=== PATIENT | male | born 1935 | race Caucasian/White ===

== ENCOUNTER 2017-08-15 09:57 | Emergency (ER) | payer MEDICARE, BC ==
[~2017-08-15] VITALS: Ht 167.6 cm; Wt 76.0 kg
[~2017-08-15 09:57] MED LIST: AMLO5CAP3 PO; COQ1100C PO; COUM3TAB PO; CYCL5TAB PO; NEXI20CA PO; OXYC-395 PO; ROSU10 PO; TRIA1TAB5 PO
[2017-08-15 10:02] VITALS: BP 166/79; PULSE 76; RESP 16; TEMP 97.9; O2SAT 97
[2017-08-15] MEDS ORDERED: HYDR2.5C TOPICAL (11:35)
[2017-08-15] MEDS ORDERED: CEPH-460 PO (11:35)
--- NOTE | 2017-08-15 11:37 | PD ---
HPI Chief Complaint: Skin Problem Time Seen by Provider: 11:06 Travel History International Travel<30 days: No Contact w/Intl Traveler<30days: No Traveled to known affect area: No History of Present Illness HPI This is an 81-year-old male here for evaluation of right lower extremity swelling, redness, itching 7 days. He reports he was doing yard work approximately one week ago which included weed whacking while wearing shorts. He noticed the following day that his right lower extremity was mildly swollen, pruritic, and mildly painful. He reports he may have been bit by an insect or come into contact with poison ravinder. At a routine visit with his supply chain assistant 6 days ago he mention the leg swelling and his supply chain assistant ordered an ultrasound to rule out DVT. He received results on Saturday08/12/17 indicating that the ultrasound was negative for DVT. He reports the swelling in his leg has reduced since that time. He noticed an area on the anterior aspect of his knee which is erythematous and pruritic. He denies fever or chills. Symptoms severity is mild. He denies chest pain, shortness of breath. He is currently anticoagulated on Coumadin for his A. fib. PFSH Past Medical History Hx Anticoagulant Therapy: Yes (coumadin) Heart Rhythm Problems: Yes Cardiovascular Problems: Yes (htn on meds, pacemaker) High Cholesterol: Yes Hypertension: Yes Kidney Stones: Yes Musculoskeletal: Yes (ANKLE) Tetanus Vaccination: Unknown Influenza Vaccination: Yes Past Surgical History Cardiac Surgery: Yes (PACEMAKER) Genitourinary Surgery: Yes (LITHOTRIPSY) Pacemaker: Yes (MAY 2006) Tonsillectomy: Yes Other Surgery: Yes ( BILAT HERNIA) Social History Alcohol Use: Yes (, wine , mix drinks) Tobacco Use: No (pipe 40 yrs ago) Substance Use: No Allergies-Medications (Allergen,Severity, Reaction): Coded Allergies: No Known Allergies (Verified , 04/22/16) Reported Meds & Prescriptions Reported Meds & Active Scripts Active Flexeril (Cyclobenzaprine HCl) 5 Mg Tab 5 Mg PO TID PRN Reported Coumadin (Warfarin) 3 Mg Tab 3 Mg PO DAILY Nexium (Esomeprazole DR) 20 Mg Capdr 20 Mg PO DAILY Coq10 (Coenzyme Q10 (Ubidecarenone)) 100 Mg Cap 100 Mg PO DAILY Oxycodone (Oxycodone HCl) 10 Mg Tab 10 Mg PO DIRECTED PRN Crestor (Rosuvastatin Calcium) 10 Mg Tab 10 Mg PO DAILY Triamterene-Hydrochlorothiazide 75-50 Mg Tab 1 Tab PO DAILY Amlodipine-Benazepril 5-20 Mg Cap 1 Cap PO DAILY Review of Systems Except as stated in HPI: all other systems reviewed are Neg General / Constitutional: No: Fever Eyes: No: Visual changes HENT: No: Headaches Cardiovascular: No: Chest Pain or Discomfort Respiratory: No: Shortness of Breath Gastrointestinal: No: Abdominal Pain Genitourinary: No: Dysuria Musculoskeletal: No: Pain Skin: Positive Rash Physical Exam Narrative GENERAL: Alert and well-appearing 81-year-old male resting comfortable on stretcher. SKIN: Warm and dry. Well demarcated area of erythema to the right anterior aspect of the knee. This is consistent with contact dermatitis vs tinea. There is also several healing scabs to the medial aspects of the leg caused by trauma by fingernails from scratching. There is small amount of erythema surrounding the scabs. HEAD: Normocephalic. EYES: No injection or drainage. NECK: Supple CARDIOVASCULAR: Regular rate and rhythm. No murmur appreciated RESPIRATORY: Breath sounds equal bilaterally. No accessory muscle use. GASTROINTESTINAL: Abdomen soft, non-tender, nondistended. MUSCULOSKELETAL: No cyanosis. Notable mild nonpitting edema to the right lower extremity starting from the knee extending into the ankle. See skin noted above. Palpable popliteal, posterior tibial, dorsal pedis pulses equal bilaterally. Negative Homans sign. Calf is nontender. Patient can freely move the knee, ankle and toes. Her most sensation. Brisk cap refill. BACK: Nontender without obvious deformity. No CVA tenderness. Data Data Last Documented VS Vital Signs Date Time Temp Pulse Resp B/P (MAP) Pulse Ox O2 Delivery O2 Flow Rate FiO2 08/15/17 10:06 16 08/15/17 10:02 97.9 76 166/79 (108) 97 MDM Medical Decision Making Medical Screen Exam Complete: Yes Emergency Medical Condition: Yes Differential Diagnosis Contact dermatitis versus tinea corporis versus mild skin infection versus DVT Narrative Course This is an 81-year-old male here with right lower extremity swelling with a rash 7 days. He underwent ultrasound which was negative for DVT 6 days ago. He reports the swelling has improved since that time. He does have what appears to be dermatitis versus tinea to his right anterior knee. He also has a mild wound infection caused by fingernail trauma to the medial aspect of the leg. No evidence of abscess or cellulitis. The extremity is neurovascularly intact. Repeat ultrasound was offered and patient declined. I don't think repeat ultrasound is warranted at this time given the fact that he had negative us 6 days ago and swelling has improved since that time. He has a follow-up appointment with his primary doctor on Saturday. He is currently anticoagulated on Coumadin. Diagnosis Primary Impression: Dermatitis Referrals: Primary Care Physician Additional Instructions: Medications as directed. Continue to elevate the extremity. Follow-up with her primary doctor this week for recheck. Return to the emergency department if he developed new or worsening symptoms. Scripts Cephalexin (Keflex) 500 Mg Cap 500 MG PO Q6H for Infection for 7 Days, #28 CAP 0 Refills Prov: Whitney Man 08/15/17 Hydrocortisone Topical (Hydrocortisone Topical) 2.5% Cream 1 APPLIC TOPICAL BID for Rash/Inflammation for 7 Days, GM 0 Refills Prov: Whitney Man 08/15/17 Disposition: 01 DISCHARGE HOME Condition: Stable Whitney Man Aug 15, 2017 11:37
== END 2017-08-15 11:48 | disposition home or self-care (01) ==
LOC: PHEFT 09:57
DX: L30.9 Dermatitis, unspecified (principal); I10 Essential (primary) hypertension; E78.00 Pure hypercholesterolemia, unspecified; Z95.0 Presence of cardiac pacemaker; Z79.01 Long term (current) use of anticoagulants
CPT/HCPCS: 99283

== ENCOUNTER 2017-10-08 10:11 | Emergency (ER) | payer MEDICARE, BC ==
[~2017-10-08] VITALS: Ht 162.6 cm; Wt 70.0 kg
[~2017-10-08 10:11] MED LIST changes: +CEPH-460 PO; +HYDR2.5C TOPICAL
[2017-10-08 10:14] VITALS: BP 154/70; PULSE 71; RESP 16; TEMP 98; O2SAT 98
[2017-10-08] MEDS ORDERED: TAMS0.4C4 (11:08)
[2017-10-08] MEDS ORDERED: CARV6.252 PO (11:08)
--- NOTE | 2017-10-08 12:12 | RADRPT ---
EXAM DATE/TIME: 10/08/2017 11:39 [facility] COMPARISON: No previous studies available for comparison. INDICATIONS : Right medial knee pain with no apparent injury. MEDICAL HISTORY : Hypertension. Hypercholesterolemia. SURGICAL HISTORY : Pacemaker. Tonsillectomy. Hernia repair. Total right hip replacement. ENCOUNTER: Initial ACUITY: 3 days PAIN SCORE: 9/10 LOCATION: Right medial knee FINDINGS: Four view examination of the right knee demonstrates no evidence of fracture or dislocation. Bony mi neralization is normal. Soft tissue swelling. Mild osteoarthritis. The suprapatellar soft tissues avelar ve a normal configuration. CONCLUSION: 1. Soft tissue swelling without fracture. 2. Mild osteoarthritis Otoniel Pisano MD on October 08, 2017 at 12:09 Board Certified Radiologist. This report was verified electronically.
--- NOTE | 2017-10-08 12:24 | PD ---
HPI Chief Complaint: Musculoskeletal Complaint Time Seen by Provider: 11:17 Travel History International Travel<30 days: No Contact w/Intl Traveler<30days: No Traveled to known affect area: No History of Present Illness HPI 81-year-old male presents emergency department complaining of right knee pain for approximately 1 week. Patient states that he was previously treated with antibiotics and diuretics weeks ago and his initial knee swelling decreased however, his right knee pain has persisted. Patient denies any injury. Patient states that the pain is worse with walking but is persistent at rest. Says that he has been using OxyContin for an old ankle injury and over-the- counter Tylenol with some relief but is concerned about a more serious process. Patient describes pain as throbbing and aching. The pain is mild to moderate in severity. He denies any numbness or tingling. Denies radiation of pain. Says that he is due to see Dr. Soria, orthopedics October 18 however, he decided to come in today for further evaluation as he is concerned about his pain. Says he has a history of a pacemaker placement and hypertension. Patient is on Coumadin. PFSH Past Medical History Hx Anticoagulant Therapy: Yes (coumadin) Heart Rhythm Problems: Yes Cardiovascular Problems: Yes (htn on meds, pacemaker) High Cholesterol: Yes Diminished Hearing: No Hypertension: Yes Kidney Stones: Yes Musculoskeletal: Yes (ANKLE) Tetanus Vaccination: Unknown Past Surgical History Cardiac Surgery: Yes (PACEMAKER) Genitourinary Surgery: Yes (LITHOTRIPSY) Pacemaker: Yes (MAY 2006) Tonsillectomy: Yes Other Surgery: Yes ( BILAT HERNIA) Social History Alcohol Use: Yes (, wine , mix drinks) Tobacco Use: No (pipe 40 yrs ago) Substance Use: No Allergies-Medications (Allergen,Severity, Reaction): Coded Allergies: No Known Allergies (Verified Adverse Reaction, Unknown, 10/08/17) Reported Meds & Prescriptions Reported Meds & Active Scripts Active Reported Carvedilol 6.25 Mg Tab 6.25 Mg PO BID Tamsulosin (Tamsulosin HCl) 0.4 Mg Cap 0.4 Mg HS Coumadin (Warfarin) 3 Mg Tab 3 Mg PO DAILY Nexium (Esomeprazole DR) 20 Mg Capdr 20 Mg PO DAILY Oxycodone (Oxycodone HCl) 10 Mg Tab 10 Mg PO DIRECTED PRN Crestor (Rosuvastatin Calcium) 10 Mg Tab 10 Mg PO DAILY Triamterene-Hydrochlorothiazide 75-50 Mg Tab 1 Tab PO DAILY Review of Systems Except as stated in HPI: all other systems reviewed are Neg Physical Exam Narrative GENERAL: Well-nourished, well-developed patient. SKIN: Focused skin assessment warm/dry. HEAD: Normocephalic. EYES: No scleral icterus. No injection or drainage. NECK: Supple, trachea midline. No JVD or lymphadenopathy. CARDIOVASCULAR: Regular rate and rhythm without murmurs, gallops, or rubs. RESPIRATORY: Breath sounds equal bilaterally. No accessory muscle use. MUSCULOSKELETAL: No cyanosis, or edema. Right knee- no edema present. Small papular rash over anterior patella without associated surrounding erythema or edema. Full range of motion. Negative varus or valgus. No clicking or popping noted. BACK: Nontender without obvious deformity. No CVA tenderness. Data Data Last Documented VS Vital Signs Date Time Temp Pulse Resp B/P (MAP) Pulse Ox O2 Delivery O2 Flow Rate FiO2 10/08/17 10:14 98.0 71 16 154/70 (98) 98 Orders Orders Knee, Complete (4vws) (10/08/17 ) Support Splint (10/08/17 12:24) Ed Discharge Order (10/08/17 12:24) MDM Medical Decision Making Medical Screen Exam Complete: Yes Emergency Medical Condition: Yes Differential Diagnosis Right knee fracture, right knee effusion, osteoarthritis Narrative Course 81-year-old male presents emergency department for evaluation of right knee pain that started approximate 1 week ago. Patient denies any inciting events. Denies numbness tingling. Says he has had significant pain with walking and therefore is using crutches to ambulate. He is due to follow-up with orthopedic physician October 18 however, he decided to come in today for evaluation. Vital signs are stable. X-ray without acute process except for some knee swelling. He is advised to follow with orthopedics as discussed. Carlito wrap for the knee. RICE for symptom relief. Return to her primary care physician for further evaluation. Diagnosis Primary Impression: Osteoarthritis Qualified Codes: M17.11 - Unilateral primary osteoarthritis, right knee Referrals: Orthopedist Additional Instructions: Use ice or heat for symptom relief. If no contraindications, you may use Tylenol or Motrin per package instructions for your pain. Elevate the joint above the heart to reduce swelling. You may use compression with Carlito wrap or similar to reduce swelling. If symptoms persist or worsen, return to the emergency department. Follow up with your primary care physician within 2 days. Disposition: 01 DISCHARGE HOME Condition: Stable Mel Gómez Oct 08, 2017 12:24
[2017-10-08] MEDS ORDERED: DICL1GEL7 TOPICAL (12:57)
== END 2017-10-08 13:12 | disposition home or self-care (01) ==
LOC: PHEFT 10:11
DX: M17.11 Unilateral primary osteoarthritis, right knee (principal); I10 Essential (primary) hypertension; E78.00 Pure hypercholesterolemia, unspecified; Z87.891 Personal history of nicotine dependence
CPT/HCPCS: 73564; 99283